=== PATIENT | male | born 1990 | race Caucasian/White ===

== ENCOUNTER 2019-07-28 17:27 | Emergency (ER) | payer OTHER, SELFPAY ==
[2019-07-28 17:28] VITALS: BP 130/76; PULSE 89; RESP 15; TEMP 37.1; O2SAT 98; BMI 24.8
--- NOTE | 2019-07-28 17:54 | RAD_ITS ---
STUDY: X-RAY - LEFT WRIST REASON FOR EXAM: Male, 28 years old. Wrist pain TECHNIQUE: 3 view(s) of the wrist were obtained. COMPARISON: None. FINDINGS: Normal visualized distal radius and ulna. Normal radiocarpal articulation. Normal distal radioulnar articulation. Normal carpal bones. Normal carpal articulations. Normal carpometacarpal articulation of the thumb. Normal second through fifth carpometacarpal articulations. Normal visualized metacarpal bones. The soft tissue structures are unremarkable. RAD/Wrist min 3 Views IMPRESSION: Normal x-ray examination of the wrist. Electronically Signed: Silvestre Ricardo DO at 18:32 EST Tel , Service support ,
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
--- NOTE | 2019-07-28 17:59 | RAD_ITS ---
STUDY: X-RAY - RIGHT WRIST REASON FOR EXAM: Male, 28 years old. Wrist pain TECHNIQUE: 3 view(s) of the wrist were obtained. COMPARISON: None. FINDINGS: Normal visualized distal radius and ulna. Normal radiocarpal articulation. Normal distal radioulnar articulation. Normal carpal bones. Normal carpal articulations. Normal carpometacarpal articulation of the thumb. Normal second through fifth carpometacarpal articulations. Normal visualized metacarpal bones. The soft tissue structures are unremarkable. RAD/Wrist min 3 Views IMPRESSION: Normal x-ray examination of the wrist. Electronically Signed: Silvestre Ricardo DO at 18:31 EST Tel , Service support ,
--- NOTE | 2019-07-28 17:59 | RAD_ITS ---
STUDY: X-RAY - RIGHT HAND REASON FOR EXAM: Male, 28 years old. Hand pain TECHNIQUE: 3 view(s) of the hand. COMPARISON: None. FINDINGS: Normal radiocarpal articulation. Normal distal radioulnar joint. Normal visualized carpal bones. Normal carpal articulations Normal carpometacarpal articulation of the thumb. Normal second through fifth carpometacarpal joints. Normal metacarpi. Normal metacarpophalangeal joint of the thumb. Normal interphalangeal joint of the thumb. Normal proximal and distal phalanges of the thumb. Normal metacarpophalangeal joints of the second through fifth fingers. Normal proximal and distal interphalangeal joints of the second through fifth fingers. Normal phalanges of the second through fifth fingers. The soft tissue structures are unremarkable. RAD/Hand Min 3 Views IMPRESSION: Normal x-ray examination of the hand. Electronically Signed: Silvestre Ricardo DO at 18:31 EST Tel , Service support ,
--- NOTE | 2019-07-28 18:00 | RAD_ITS ---
STUDY: X-RAY - LEFT HAND REASON FOR EXAM: Male, 28 years old. Hand pain TECHNIQUE: 3 view(s) of the hand. COMPARISON: None. FINDINGS: Normal radiocarpal articulation. Normal distal radioulnar joint. Normal visualized carpal bones. Normal carpal articulations Normal carpometacarpal articulation of the thumb. Normal second through fifth carpometacarpal joints. Normal metacarpi. Normal metacarpophalangeal joint of the thumb. Normal interphalangeal joint of the thumb. Normal proximal and distal phalanges of the thumb. Normal metacarpophalangeal joints of the second through fifth fingers. Normal proximal and distal interphalangeal joints of the second through fifth fingers. Normal phalanges of the second through fifth fingers. The soft tissue structures are unremarkable. RAD/Hand Min 3 Views IMPRESSION: Normal x-ray examination of the hand. Electronically Signed: Silvestre Ricardo DO at 18:32 EST Tel , Service support ,
--- NOTE | 2019-07-28 18:44 | ED.DEP ---
ED Disposition - Plan for ED Patient: Instructions: Wrist Sprain Prescriptions: Naproxen [Naprosyn] 500 mg PO BID PRN #20 tablet Referrals: [facility] Doctor,Out of [NON-STAFF] - Freddie Don MD [NON-STAFF] -
--- NOTE | 2019-07-28 18:58 | ED.DEP ---
ED Disposition - Plan for ED Patient: Instructions: Wrist Sprain Prescriptions: Naproxen [Naprosyn] 500 mg PO BID PRN #20 tab Prescription Printed Referrals: Freddie Don MD [NON-STAFF] - [facility] Doctor,Out of [NON-STAFF] - Daisy Leija DO [STAFF PHYSICIAN] -
--- NOTE | 2019-07-28 19:03 | ED.DEP ---
ED Disposition - Plan for ED Patient: Instructions: Wrist Sprain Prescriptions: Naproxen [Naprosyn] 500 mg PO BID PRN #20 tab Prescription Printed Referrals: Daisy Leija DO [STAFF PHYSICIAN] - Freddie Don MD [NON-STAFF] - [facility] [address] [facility] Doctor,Out of [NON-STAFF] -
== END 2019-07-28 19:11 | disposition home or self-care (01) ==
PROVIDERS: Emergency Provider Emergency Medicine
DX: S63.501A Unspecified sprain of right wrist, initial encounter (principal); S63.502A Unspecified sprain of left wrist, initial encounter; S60.812A Abrasion of left wrist, initial encounter; S60.811A Abrasion of right wrist, initial encounter; X58.XXXA Exposure to other specified factors, initial encounter; Y93.89 Activity, other specified; Z72.0 Tobacco use
CPT/HCPCS: 73110; 73130; 99284

== ENCOUNTER 2020-10-03 15:42 | Emergency (ER) | payer OTHER, SELFPAY ==
[2020-10-03 15:44] VITALS: BP 142/79; PULSE 61; RESP 16; TEMP 35.9; O2SAT 99; BMI 27.8
--- NOTE | 2020-10-03 16:04 | ED.DCSUM_ITS ---
History of Present Illness Chief Complaint: Upper Extremity Injury Informant: Patient Narrative: 29-year-old male presents with right hand pain and swelling. Patient punched a wall not quite 2 weeks ago. He is right-handed. He notes continued swelling particularly along the dorsal medial aspect of the right hand. Past Medical History - Allergies and Home Meds Allergies/Adverse Reactions: Allergies No Known Allergies Allergy (Verified 10/03/20 15:43) Primary Care Physician: Care Physician,No Primary [Primary Care Provider] - Past Medical History: None Surgical History: noncontributory Smoking Status: Current every day smoker Drugs: None Review of Systems General: Denies: Chills, Fever, Sweats Eyes: Denies: Visual changes - bilaterally, Diplopia ENT: Denies: Rhinorrhea, Sore throat Cardiovascular: Denies: Chest pain, Palpitations Respiratory: Denies: Dyspnea, Cough, Dyspnea on exertion Gastrointestinal: Denies: Abdominal pain, Nausea, Vomiting, Diarrhea, Melena, Hematochezia Genitourinary: Denies: Dysuria, Hematuria, Frequency Musculoskeletal: Reports: Swelling, Extremity Pain. Denies: Back pain Skin: Denies: Rash, Wounds Neurological: Denies: Headache, Weakness, Numbness Physical Exam Vital Signs/Narrative: Vital Signs Temp Pulse Resp BP Pulse Ox 10/03/20 15:44 96.7 F L 61 16 142/79 H 99 Inital Vital Signs reviewed: Yes General: Well nourished, Well developed, No Acute Distress Head: Normocephalic, Atraumatic Eyes: Perrl, EOMI ENT: Moist mucous membranes, No rhinorrhea Neck: Supple, Nontender Cardiovascular: Regular rate, Regular rhythm, No murmurs Respiratory: No distress, CTA bilaterally, Chest nontender Abdomen: Soft, Nontender, Nondistended, Normal bowel sounds Back: Nontender, Normal Inspection Extremities: Tenderness - Tenderness and swelling along the fifth metacarpal. No malrotation. Neurovascular intact. Skin: Normal color, No rash Neurological: Alert, Oriented x3, Cranial nerves II-XII grossly intact, Normal Strength, Normal Sensation Psychological: Normal affect, Normal Mood Diagnostic/Tx/Re-eval Clinical Impression(s) from Imaging Studies Hand X-Ray 10/03/20 16:25 IMPRESSION: An acute horizontal fractures present in the proximal shaft of the fifth metacarpal bone with mild displacement and dorsal apex angulation. The overlying soft tissues are swollen. Electronically Signed: Cornelius Asif MD at 16:39 EST , Service support , - Medical Decision Making My interpretation of the 3 views right hand x-rays are for any fracture through the fifth metacarpal with mild displacement of the pieces. Patient was placed in a well-padded ulnar gutter splint. Neurovascularly intact pre and post application he will be referred to orthopedics for further management. ED Disposition - Plan for ED Patient: Disposition: Home or Assisted Living Diagnosis: Fracture of fifth metacarpal bone of right hand Instructions: ED Closed Hand Fracture (Adult) Prescriptions: Hydrocodone Bitart/Apap 5-325 [[place] 5MG-325MG] 1 tab PO Q6H PRN PRN 3 Days #10 tab PRN Reason: Pain Prescription Printed Referrals: Philip Rush DO [STAFF PHYSICIAN] - (call to arrange follow up)
--- NOTE | 2020-10-03 16:25 | RAD_ITS ---
STUDY: X-RAY - RIGHT HAND REASON FOR EXAM: Male, 29 years old. punched wall -- 2 weeks ago TECHNIQUE: 3 view(s) of the hand. COMPARISON: Right hand x-ray dated July 28, 2019 FINDINGS: An acute horizontal fractures present in the proximal shaft of the fifth metacarpal bone with mild displacement and dorsal apex angulation. The overlying soft tissues are swollen. Normal radiocarpal articulation. Normal distal radioulnar joint. Normal visualized carpal bones. Normal carpal articulations Normal carpometacarpal articulation of the thumb. Normal second through fifth carpometacarpal joints. Normal metacarpi. Normal metacarpophalangeal joint of the thumb. Normal interphalangeal joint of the thumb. Normal proximal and distal phalanges of the thumb. Normal metacarpophalangeal joints of the second through fifth fingers. Normal proximal and distal interphalangeal joints of the second through fifth fingers. Normal phalanges of the second through fifth fingers. RAD/Hand Min 3 Views IMPRESSION: An acute horizontal fractures present in the proximal shaft of the fifth metacarpal bone with mild displacement and dorsal apex angulation. The overlying soft tissues are swollen. Electronically Signed: Cornelius Asif MD at 16:39 EST , Service support ,
== END 2020-10-03 16:54 | disposition home or self-care (01) ==
PROVIDERS: Emergency Provider Emergency Medicine
DX: S62.306A Unspecified fracture of fifth metacarpal bone, right hand, initial encounter for closed fracture (principal); W22.8XXA Striking against or struck by other objects, initial encounter; Y93.89 Activity, other specified; Y92.9 Unspecified place or not applicable; Y99.9 Unspecified external cause status; F17.200 Nicotine dependence, unspecified, uncomplicated
CPT/HCPCS: 29125; 73130; 99282